=== PATIENT | male | born 1995 | race Hispanic/Latino ===

== ENCOUNTER 2020-08-06 16:13 | Emergency (ER) | payer SELFPAY ==
[2020-08-06] MEDS ORDERED: LIDOCAINE HCL 1% 20 ML VIAL ONE (16:48)
[2020-08-06] MEDS ORDERED: TETANUS/DIPHTHERIA TOXOID [ADULT] 0.5 ML VIAL IM ONE (16:48)
== END 2020-08-06 17:38 | disposition home or self-care (01) ==
LOC: EDH 16:13
DX: S61.411A Laceration without foreign body of right hand, initial encounter (principal); Z88.1 Allergy status to other antibiotic agents; Z88.0 Allergy status to penicillin; W25.XXXA Contact with sharp glass, initial encounter; Y93.89 Activity, other specified; Y92.89 Other specified places as the place of occurrence of the external cause; Y99.8 Other external cause status
CPT/HCPCS: 12001; 73130; 90471; 90714